=== PATIENT | male | born 1985 | race Caucasian/White ===

== ENCOUNTER 2016-02-18 09:54 | Emergency (ER) | payer MEDICAID ==
--- NOTE | 2016-02-18 10:19 | ER Document Report ---
ED Medical Screen (RME) - General Stated Complaint: COUGH Notes: Past two days has been coughing with intermittent SOB dry cough + nasal drainage denies fevers, sinus congestion, body aches, productive cough has not been taking anything OTC for symptoms PMH: asthma smoker, 13 pack years - Related Data Allergies/Adverse Reactions: Sulfa (Sulfonamide Antibiotics) Allergy (Verified 02/18/16 10:15) Past Medical History Pulmonary Medical History: Reports: Hx Asthma
[2016-02-18] MEDS ORDERED: PREDNISONE 20 MG TABLET PO ONE (11:11)
[2016-02-18] MEDS ORDERED: IPRATROPIUM/ALBUTEROL 0.5-2.5 MG/3 ML AMPUL NEB ONE (11:11)
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
[2016-02-18] MEDS ORDERED: ALBUTEROL SULFATE HFA (90 MCG/PUFF) 8 GM MDI (1 MDI/ER DISP) IH ONE (12:23)
[2016-02-18] MEDS ORDERED: ALBUTEROL SULFATE 0.083% NEB 2.5 MG/3 ML AMPUL NEB ONE (12:23)
[2016-02-18 12:39] VITALS: BP 149/92
== END 2016-02-18 12:39 | disposition home or self-care (01) ==
LOC: ER 09:54
DX: R05 Cough (principal); R06.2 Wheezing; R03.0 Elevated blood-pressure reading, without diagnosis of hypertension; R09.81 Nasal congestion; F17.210 Nicotine dependence, cigarettes, uncomplicated
CPT/HCPCS: 94640; 99283; 71020; J7512; J3490; J7620

== ENCOUNTER 2017-01-12 22:56 | Emergency (ER) | payer MEDICAID ==
[2017-01-12] MEDS ORDERED: OXYCODONE HCL SR 10 MG TABLET PO ONE (23:12)
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
[2017-01-12] MEDS ORDERED: SILVER SULFADIAZINE 1% CREAM 50 GM TP ONE (23:19)
[2017-01-13 00:34] LABS: HEMATOCRIT 35.9 % (37.9-51.0); HEMOGLOBIN 12.1 g/dL (13.5-17.0); HGB HCT DIFFERENCE 0.4; MEAN CORPUSCULAR HEMOGLOBIN 30.1 pg (27.0-33.4); MEAN CORPUSCULAR HGB CONC 33.7 g/dL (32.0-36.0); MEAN CORPUSCULAR VOLUME 89 fl (80-97); RED BLOOD COUNT 4.02 10^6/uL (4.35-5.55); RED CELL DISTRIBUTION WIDTH 15.7 % (11.5-14.0); WHITE BLOOD COUNT 13.5 10^3/uL (4.0-10.5)
[2017-01-13 00:51] LABS: ANION GAP 8 (5-19); BLOOD UREA NITROGEN 5 mg/dL (7-20); CALCIUM 9.6 mg/dL (8.4-10.2); CARBON DIOXIDE 30 mmol/L (22-30); CHLORIDE 99 mmol/L (98-107); CREATININE RESULT 0.86 mg/dL (0.52-1.25); GLUCOSE 96 mg/dL (75-110); POTASSIUM 4.4 mmol/L (3.6-5.0); SODIUM 137.2 mmol/L (137-145)
[2017-01-13 00:58] LABS: ABSOLUTE EOSINOPHILS# (MANUAL) 0.1 10^3/uL (0.0-0.6); BAND NEUTROPHILS % (MANUAL) 1 % (3-5); BASOPHILS % (MANUAL) 0 % (0-2); EOSINOPHILS % (MANUAL) 1 % (0-6); LYMPHOCYTES % (MANUAL) 12 % (13-45); TOTAL CELLS COUNTED 100
[2017-01-13 00:59] LABS: ANISOCYTOSIS 1+; POLYCHROMASIA SLIGHT; TOXIC GRANULATION SLIGHT; TOXIC VACUOLATION PRESENT
[2017-01-13] MEDS ORDERED: SILVER SULFADIAZINE 1% CREAM 50 GM ONE (01:20)
[2017-01-13] MEDS ORDERED: FENTANYL CITRATE INJ/PF 100 MCG/2 ML AMPUL IV ONE (02:52)
[2017-01-13] MEDS ORDERED: OXYCODONE HCL SR 10 MG TABLET PO ONE (04:33)
[2017-01-13 09:37] VITALS: BP 127/90
--- NOTE | 2017-01-13 09:53 | ER Document Report ---
Doctor's Note Notes: 01/13/17 09:52 Patient evaluated prior to his being discharged to go to [facility]. Patient is sleeping soundly. No complaints. Vital signs stable. Tatiana Engel MD
--- NOTE | 2017-01-14 07:56 | EKG REPORT ---
SEVERITY:- ABNORMAL ECG - SINUS RHYTHM PROBABLE LEFT ATRIAL ABNORMALITY PROBABLE LEFT VENTRICULAR HYPERTROPHY BORDERLINE PROLONGED QT INTERVAL : Confirmed by: Samreen Rader 14-Jan-2017 07:55:48
== END 2017-01-13 09:01 | disposition short-term general hospital (02) ==
LOC: ER 22:56
DX: T21.34XD Burn of third degree of lower back, subsequent encounter (principal); T21.32XD Burn of third degree of abdominal wall, subsequent encounter; T22.341D Burn of third degree of right axilla, subsequent encounter; T20.37XD Burn of third degree of neck, subsequent encounter; T21.31XD Burn of third degree of chest wall, subsequent encounter; X08.8XXD Exposure to other specified smoke, fire and flames, subsequent encounter; J45.909 Unspecified asthma, uncomplicated; F17.200 Nicotine dependence, unspecified, uncomplicated; Z88.2 Allergy status to sulfonamides
CPT/HCPCS: 99285; 96374; 36415; 85025; 80048; J3010; J3490

== ENCOUNTER 2018-06-25 02:58 | Emergency (ER) | payer MEDICAID ==
[2018-06-25] MEDS ORDERED: ACETAMINOPHEN 325 MG TABLET PO ONE (05:03)
[2018-06-25] MEDS ORDERED: IBUPROFEN 600 MG TABLET PO ONE (05:03)
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
--- NOTE | 2018-06-25 06:51 | RADIOLOGY REPORT (SQ) ---
CLINICAL DATA: 33-year-old male with right scrotal swelling. TECHNICAL DATA: Sagittal and transverse ultrasound imaging and measurement of bilateral testicles with color flow was performed. Comparison: None. FINDINGS: The right testicle measures 4.9 x 3.2 x 3.3 cm and is homogeneous in echogenicity. No focal masses are identified. The right epididymal head measures 2.2 x 1.3 x 2.0 cm. Doppler imaging demonstrates increased Doppler flow to the right testicle and right epididymis consistent with epididymoorchitis . The left testicle measures 3.0 x 1.9 x 3.4 cm and is homogeneous in echogenicity. The left epididymal head measures 0.7 x 0.6 x 0.9 cm. Doppler imaging demonstrates normal flow in the left testicle. There is no evidence of a varicocele. There is a moderate complex hydrocele on the right side. IMPRESSION: 1. Sonographic findings most consistent with right-sided epididymoorchitis with an associated moderate complex hydrocele. 2. Grossly normal sonographic evaluation of the left testicle.
[2018-06-25] MEDS ORDERED: AZITHROMYCIN 250 MG TABLET PO ONE (07:24)
[2018-06-25] MEDS ORDERED: LIDOCAINE 1% INJ-PF (10 MG/ML) 30 ML SDV INJ ONE (07:24)
[2018-06-25] MEDS ORDERED: CEFTRIAXONE INJ 250 MG VIAL IM ONE (07:24)
[2018-06-25 08:04] VITALS: BP 134/68
[2018-06-25 08:13] LABS: CHLAM PCR NOT DETECTED (NOT DETECT); GON PCR DETECTED (NOT DETECT)
== END 2018-06-25 08:07 | disposition home or self-care (01) ==
LOC: ER 02:58
DX: N45.1 Epididymitis (principal); N43.3 Hydrocele, unspecified; N50.89 Other specified disorders of the male genital organs; R36.9 Urethral discharge, unspecified; F17.200 Nicotine dependence, unspecified, uncomplicated; J45.909 Unspecified asthma, uncomplicated
CPT/HCPCS: 99284; 96372; 87491; 87591; 76870; 93976; J3490 ×3; Q0144; J0696